=== PATIENT | male | born 1995 | race Caucasian/White ===

== ENCOUNTER 2016-07-21 15:21 | Emergency (ER) | payer SELFPAY ==
[2016-07-21 15:50] VITALS: BP 150/93
[2016-07-21] MEDS ORDERED: Lidocaine 1% MPF* 2 ML VIAL INJ ONE (16:06)
--- NOTE | 2016-07-21 16:17 | UC ---
Laceration HPI - HPI Summary HPI Summary: patient cut the right index finger mcp joint on a piece of metal at work. he is UTD on tetanus, happened a few hours ago. bleeding is controlled, has good ROM in the finger and hand - History Of Current Complaint Chief Complaint: UCLaceration Stated Complaint: RT HAND LAC-WC Time Seen by Provider: 07/21/16 15:48 Hx Obtained From: Patient Laceration Location: Hand Mechanism Of Injury: Sharp Trauma Onset/Duration: Sudden Onset, Lasting Hours Severity: Moderate Related History: Dominant Hand Right - Allergies/Home Medications Allergies/Adverse Reactions: Allergies Allergy/AdvReac Type Severity Reaction Status Date / Time Amoxicillin Allergy Hives Verified 07/21/16 15:42 Cefprozil [From Cefzil] Allergy Hives Verified 07/21/16 15:42 PMH/Surg Hx/FS Hx/Imm Hx Previously Healthy: Yes - Surgical History Surgical History: Yes Surgery Procedure, Year, and Place: NASAL POLYPS - Family History Known Family History: Negative: Cardiac Disease, Hypertension - Social History Alcohol Use: Rare Substance Use Type: Marijuana Substance Use Comment - Amount & Last Used: occasional Smoking Status (MU): Light Every Day Tobacco Smoker Type: Cigarettes Amount Used/How Often: 1/2 ppd - Immunization History Most Recent Influenza Vaccination: none Most Recent Tetanus Shot: 2011 Review of Systems Constitutional: Negative Skin: Other - laceration Eyes: Negative ENT: Negative Respiratory: Negative Cardiovascular: Negative Gastrointestinal: Negative Genitourinary: Negative Motor: Negative Neurovascular: Negative Musculoskeletal: Negative Neurological: Negative Psychological: Negative All Other Systems Reviewed And Are Negative: Yes Physical Exam Triage Information Reviewed: Yes Appearance: Well-Appearing, Well-Nourished, Pain Distress Vital Signs: Initial Vital Signs Temp 98.0 F 07/21/16 15:37 Pulse 93 07/21/16 15:37 Resp 17 07/21/16 15:37 BP 150/93 07/21/16 15:37 Pulse Ox 100 07/21/16 15:37 Vital Signs Reviewed: Yes Eye Exam: Normal Eyes: Positive: Conjunctiva Clear ENT: Positive: Normal ENT inspection, Hearing grossly normal, Pharynx normal, TMs normal Dental Exam: Normal Neck exam: Normal Neck: Positive: Supple, Nontender Respiratory: Positive: Chest non-tender, Lungs clear, Normal breath sounds Cardiovascular Exam: Normal Cardiovascular: Positive: RRR, No Murmur, Pulses Normal Abdominal Exam: Normal Abdomen Description: Positive: Nontender, No Organomegaly, Soft Bowel Sounds: Positive: Present Musculoskeletal Exam: Normal Musculoskeletal: Positive: Strength Intact, ROM Intact, No Edema Neurological Exam: Normal Neurological: Positive: Alert, Muscle Tone Normal Psychological Exam: Normal Skin: Positive: Other - laceration 3 cm long, simple, edges approximate well. Laceration Repair - Laceration Repair 1 Description: Linear Laceration Size After Repair: Length (cm) - 3 Modified For Repair: No Type Injection: Local Anesthesia Used: 1.0% Lido Irrigation With Pressure Irrigation Device: Yes Closure Material: SteriStrips - 3, Sutures - 3 Closure Method: Single Layer Suture Of: Skin Laceration Course/Dx - Course/Dx Course Of Treatment: hx obtained, exam performed, meds reviewed, laceration irrigated, repaired and dressed. - Differential Dx - Laceration/Wound Differental Diagnoses: Joint Infection, Laceration, Tendon Laceration Provider Diagnoses: simple laceration of right hand Discharge - Discharge Plan Condition: Stable Disposition: HOME Prescriptions: Sulfamethox/Trimethoprim DS* [Bactrim DS 800/160 TAB*] 1 tab PO BID #14 tab Patient Education Materials: Care For Your Stitches (ED), Laceration (ED) Referrals: Renato Kirkland DO [Primary Care Provider] - Additional Instructions: 1. keep the area clean and dry 2. use the splint for the next 72 hours. 3. Follow up in 7-10 days for removal of sutures, sooner if there are any signs of infection.
== END 2016-07-21 16:55 | disposition home or self-care (01) ==
LOC: UCCORT 15:21
DX: S61.411A Laceration without foreign body of right hand, initial encounter (principal); W45.8XXA Other foreign body or object entering through skin, initial encounter; Y93.89 Activity, other specified; Y92.89 Other specified places as the place of occurrence of the external cause; Y99.0 Civilian activity done for income or pay; Z88.1 Allergy status to other antibiotic agents; F12.90 Cannabis use, unspecified, uncomplicated; F17.210 Nicotine dependence, cigarettes, uncomplicated
CPT/HCPCS: 12002; 99202; G0463